=== PATIENT | male | born 1985 | race Caucasian/White ===

== ENCOUNTER 2016-12-09 12:51 | Emergency (ER) | payer OTHER ==
[2016-12-09 12:56] VITALS: BP 127/83; PULSE 64; RESP 16; TEMP 97.9; O2SAT 96
[2016-12-09] MEDS ORDERED: TDAP ADULT 0.5 ML INJ (BOOSTRIX) IM ONE (13:10)
--- NOTE | 2016-12-09 13:19 | EDPHY ---
H & P Time Seen by Provider: 12/09/16 12:57 HPI/ROS: CHIEF COMPLAINT: Snake bite HPI: The patient is a 31-year-old male with no significant past past medical history. Approximately 30 minutes ago, the patient was bitten by a grayish white sneak in the yd outside of his home. The patient is sure that the snake did not have a rattle. He cannot describe this any further. He was bitten to the right lateral calf. He denies any significant pain or swelling at the site. He denies nausea, diaphoresis, myalgias or malaise. His last tetanus shot was unknown. REVIEW OF SYSTEMS: Aside from elements discussed in the HPI, a comprehensive 10-point review of systems was reviewed and is negative. PMH: None significant. SOCIAL HISTORY: Denies alcohol or drug abuse. PHYSICAL EXAM: General:Patient is alert, in no acute distress. ENT:Eyes are normal to inspection. ENT inspection normal. Neck: Normal inspection. Full range of motion. Respiratory:No respiratory distress. Breath sounds normal bilaterally. Cardiovascular: Regular rate and rhythm. Strong peripheral pulses. Normal cap refill. Abdomen:The abdomen is nontender to palpation. There are no peritoneal signs. There are normal bowel sounds. Back: Normal to inspection. No tenderness to palpation. Skin: 2 small puncture wounds consistent with a snake bite are present on the right lateral thigh. There is no surrounding erythema, induration, discharge or bleeding. Extremities: Normal appearance. Full range of motion. Neuro: Oriented x3. Normal motor function. Normal sensory function. Smoking Status: Never smoked Constitutional: Initial Vital Signs Temperature (C) 36.6 C 12/09/16 12:52 Heart Rate 64 12/09/16 12:52 Respiratory Rate 16 12/09/16 12:52 Blood Pressure 127/83 H 12/09/16 12:52 O2 Sat (%) 96 12/09/16 12:52 O2 Delivery Mode Room Air Allergies/Adverse Reactions: amoxicillin trihydrate [From Augmentin] Allergy (Mild, Verified 12/09/16 12:56) Rash potassium clavulanate [From Augmentin] Allergy (Mild, Verified 12/09/16 12:56) Rash Home Medications: Medication Instructions Recorded NK [No Known Home Meds] 12/09/16 MDM/Departure - MDM Medications Given: Discontinued Medications Diphtheria/Tetanus/Acell Pertussis (Boostrix) 0.5 ml IM .ONCE ONE Stop: 12/09/16 13:11 Last Admin: 12/09/16 13:17 Dose: 0.5 ml ED Course/Re-evaluation: This patient presents with report of unknown sneak bite to his right lower extremity. The wound itself appears normal and there is no evidence of any local inflammation. The patient denies any systemic complaints. He was observed in the emergency department for over an hour and his exam is unchanged. Therefore, I think the likelihood of Crotalid envenomation is very low and I think the patient can be safely discharged home. We discussed strict return precautions. The patient's tetanus shot was updated. - Depart Disposition: Home, Routine, Self-Care Clinical Impression: Snake bite Condition: Good Instructions: Snake Bite (ED) Additional Instructions: Return to the emergency department immediately for any redness, swelling, pain, nausea, fever or other concerns. Referrals: NONE *PRIMARY CARE P,. [Primary Care Provider] - As per Instructions
== END 2016-12-09 13:51 | disposition home or self-care (01) ==
DX: T63.001A Toxic effect of unspecified snake venom, accidental (unintentional), initial encounter (principal); Z23 Encounter for immunization